=== PATIENT | female | born 1955 | race African-American/Black ===

== ENCOUNTER 2017-09-14 18:04 | Emergency (ER) | payer MEDICARE, MEDICAID ==
[~2017-09-14] VITALS: Ht 157.5 cm; Wt 119.0 kg
[~2017-09-14 18:04] MED LIST: ATORVASTATIN CA40 MG PO; BACTRIM DS1 TAB OR; BACTRIM DS1 TAB PO; BENICAR40 MG PO; CLINDAMYCIN 1% TOP; CYCLOBENZAPR10 MG PO; CYCLOBENZAPR5 MG PO; DOXYCYCL HYC100 MG PO; FLEXERIL PO; HC VALERATE EX; HYDROCHLOROT25 MG PO; HYDROCO/APAP1 T10 OR; HYDROCORT AC2.5% TOP; LORTAB 10-325 M1 TAB PO; LORTAB 5 OR; LOSARTAN POT100 MG PO; MELOXICAM7.5 MG PO; METFORMIN500 M1 PO; METRONIDAZOL500 MG PO; MICARDIS HC1 OR; NAPROSYN500 MG OR; NAPROSYN500 MG PO; OMEPRAZOLE10 MG PO; PAXIL20 MG OR; PAXIL20 MG PO; POTASSIUM CHLO10 MEQ PO; PROAIR HFA IN; TRAMADOL HCL50 MG PO; VISTARIL50 MG OR; ZPAK PO
[2017-09-14 21:34] LABS: HEMATOCRIT 35.2 % (37.0-47.0); HEMOGLOBIN 11.5 g/dl (12.0-16.0); IMMATURE GRANULOCYTES 0.4 % (0.0-1.0); MEAN CELL VOLUME 76.2 fL CALC (80.0-100.0); MEAN CORPUSCULAR HGB 24.9 pG CALC (26.0-32.0); MEAN CORPUSCULAR HGB CONC 32.7 g/L CALC (32.0-36.0); NEUT# 10.38 thou/uL (2.00-7.15); RED BLOOD COUNT 4.62 mill/uL (4.20-5.60); RED CELL DISTRI WIDTH 14.6 % (11.5-15.5)
[2017-09-14 21:55] LABS: ALBUMIN 4.4 g/dL (3.2-5.0); ALKALINE PHOSPHATASE 126 u/l (38-126); ANION GAP 15 (6-22 (CALC)); BILIRUBIN, TOTAL 0.5 mg/dL (0.0-1.4); BUN 12 mg/dL (8-23); BUN/CREATININE RATIO 22 (12-20 (CALC)); CALCIUM 9.4 mg/dL (8.4-10.2); CARBON DIOXIDE 28 mmol/l (22-30); CHLORIDE 103 mmol/l (95-108); CREATININE 0.5 mg/dL (0.5-1.0); GFR > 60 ML/MIN (>=60 (CALC)); GFR FOR AFR.AMER. > 60 ML/MIN (>=60 (CALC)); GLUCOSE 115 mg/dL (82-115); POTASSIUM 4.2 mmol/l (3.5-5.1); SGOT/AST 23 u/l (9-36); SGPT/ALT 42 u/l (11-66); SODIUM 142 mmol/l (137-146); TOTAL PROTEIN 7.9 g/dL (6.3-8.2)
[2017-09-14 22:01] LABS: URINE BILIRUBIN - DIPSTICK NEGATIVE (NEGATIVE); URINE BLOOD DIPSTICK NEGATIVE (NEGATIVE); URINE CLARITY CLEAR; URINE COLOR YELLOW; URINE GLUCOSE - DIPSTICK NEGATIVE (NEGATIVE); URINE KETONE NEGATIVE (NEGATIVE); URINE LEUK ESTERASE NEGATIVE (NEGATIVE); URINE NITRITE - DIPSTICK NEGATIVE (Negative); URINE PH 5.5 (4.5-8.0); URINE PROTEIN - DIPSTICK NEGATIVE (NEG-TRACE); URINE UROBILINOGEN - DIPSTICK 0.2 E.U./dL (0.2)
[2017-09-14] MEDS ORDERED: ZOFRAN ODT4 MG PO (22:19)
[2017-09-14] MEDS ORDERED: BENTYL20 MG PO (22:19)
[2017-09-14 23:30] VITALS: BP 145/70
== END 2017-09-14 23:35 | disposition home or self-care (01) ==
LOC: ED 18:04
PROVIDERS: Emergency Medicine
DX: K52.9 Noninfective gastroenteritis and colitis, unspecified (principal); I10 Essential (primary) hypertension; E11.9 Type 2 diabetes mellitus without complications; J44.9 Chronic obstructive pulmonary disease, unspecified; E66.01 Morbid (severe) obesity due to excess calories; G89.29 Other chronic pain; M54.9 Dorsalgia, unspecified

== ENCOUNTER → 2019-01-15 | Outpatient (REF) | payer MEDICARE, MEDICAID ==
[~2019-01-15] MED LIST changes: +BACLOFEN20 MG PO; +BENTYL20 MG PO; +COLACE100 MG PO; +FUROSEMIDE20 MG PO; +MELOXICAM15 MG PO; +ZOFRAN ODT4 MG PO
[2019-01-15 10:46] VITALS: BP 195/91
== END | disposition home or self-care (01) ==
LOC: BADA 10:30
PROVIDERS: ATTEND Surgery
DX: R19.5 Other fecal abnormalities (principal)

== ENCOUNTER → 2019-01-26 | Outpatient (REF) | payer MEDICARE, MEDICAID ==
[~2019-01-26] VITALS: Ht 157.5 cm; Wt 114.8 kg
[2019-01-26 11:39] VITALS: BP 182/98
== END | disposition home or self-care (01) ==
LOC: PO 09:10 → ORM 10:00
PROVIDERS: ATTEND Surgery
DX: Z01.818 Encounter for other preprocedural examination (principal); R19.5 Other fecal abnormalities; M19.90 Unspecified osteoarthritis, unspecified site; I10 Essential (primary) hypertension; E11.9 Type 2 diabetes mellitus without complications; E78.00 Pure hypercholesterolemia, unspecified; R06.02 Shortness of breath; Z96.643 Presence of artificial hip joint, bilateral; Z96.652 Presence of left artificial knee joint; Z98.890 Other specified postprocedural states; Z97.2 Presence of dental prosthetic device (complete) (partial); R14.0 Abdominal distension (gaseous)

== ENCOUNTER 2019-03-25 18:33 | Emergency (ER) | payer MEDICARE, MEDICAID ==
[~2019-03-25] VITALS: Ht 157.5 cm; Wt 119.1 kg
[2019-03-25] MEDS ORDERED: LISINOPRIL20 MG PO (18:55)
[2019-03-25 21:10] VITALS: BP 178/75
== END 2019-03-25 21:10 | disposition home or self-care (01) ==
LOC: ED 18:33
DX: S80.01XA Contusion of right knee, initial encounter (principal); S90.01XA Contusion of right ankle, initial encounter; S40.011A Contusion of right shoulder, initial encounter; S70.01XA Contusion of right hip, initial encounter; I10 Essential (primary) hypertension; E11.9 Type 2 diabetes mellitus without complications; W07.XXXA Fall from chair, initial encounter; Y92.009 Unspecified place in unspecified non-institutional (private) residence as the place of occurrence of the external cause

== ENCOUNTER 2019-06-11 08:22 | Inpatient (IN) | payer MEDICARE, MEDICAID ==
[~2019-06-11] VITALS: Ht 157.5 cm; Wt 116.1 kg
[~2019-06-11 08:22] MED LIST changes: +CYCLOBENZAPRINE5 MG PO; +HYDROCODONE/ACE1 TAB PO; +KLOR-CON M2020 MEQ PO
[2019-06-11] MEDS ORDERED: DOXYCYC MONO50 M1 PO (09:10)
[2019-06-11] MEDS ORDERED: CYCLOBENZAPR5 MG PO (09:15)
[2019-06-18] VITALS (8 sets, daily range): BP systolic 127–160; BP diastolic 53–75
[2019-06-18] MEDS ORDERED: POT CHLORIDE20 ME2 PO (08:26)
[2019-06-18] MEDS ORDERED: PROAIR HFA108 MCG/AC IN (08:27)
[2019-06-18 09:10] LABS: HEMATOCRIT 32.2 % (37.0-47.0); HEMOGLOBIN 10.3 g/dl (12.0-16.0); IMMATURE GRANULOCYTES 0.3 % (0.0-5.0); MEAN CELL VOLUME 76.8 fL CALC (80.0-100.0); MEAN CORPUSCULAR HGB 24.6 pG CALC (26.0-32.0); NEUT# 5.35 thou/uL (2.00-7.15); RED BLOOD COUNT 4.19 mill/uL (4.20-5.60); RED CELL DISTRI WIDTH 15.7 % (11.5-15.5)
[2019-06-18 09:46] LABS: ALBUMIN 4.2 g/dL (3.2-5.0); ALKALINE PHOSPHATASE 122 u/l (38-126); ANION GAP 14 (6-22 (CALC)); BUN 11 mg/dL (8-23); BUN/CREATININE RATIO 21 (12-20 (CALC)); CARBON DIOXIDE 28 mmol/l (22-30); CHLORIDE 104 mmol/l (95-108); CREATININE 0.5 mg/dL (0.5-1.0); GFR > 60 ML/MIN (>=60 (CALC)); GFR FOR AFR.AMER. > 60 ML/MIN (>=60 (CALC)); POTASSIUM 5.1 mmol/l (3.5-5.1); SGOT/AST 29 u/l (9-36); SODIUM 140 mmol/l (137-146); TOTAL PROTEIN 7.3 g/dL (6.3-8.2)
[2019-06-18 09:49] LABS: BILIRUBIN, TOTAL 0.4 mg/dL (0.0-1.4)
[2019-06-19 00:59] VITALS: BP 138/72
[2019-06-19 03:54] VITALS: BP 135/57
[2019-06-19 05:25] LABS: HEMATOCRIT 31.4 % (37.0-47.0); HEMOGLOBIN 9.8 g/dl (12.0-16.0)
[2019-06-19 08:00] VITALS: BP 140/50
[2019-06-19 11:11] VITALS: BP 148/64
[2019-06-19 15:22] VITALS: BP 139/76
[2019-06-19 19:19] VITALS: BP 133/78
[2019-06-20 04:10] VITALS: BP 122/56
[2019-06-20 07:38] VITALS: BP 138/63
[2019-06-20 11:32] VITALS: BP 151/56
[2019-06-20 16:00] VITALS: BP 148/56
[2019-06-20 20:30] VITALS: BP 114/60
[2019-06-21 00:38] VITALS: BP 125/59
[2019-06-21 05:20] VITALS: BP 135/70
[2019-06-21 07:18] VITALS: BP 139/71
[2019-06-21 11:06] VITALS: BP 116/62
[2019-06-21] MEDS ORDERED: HYDROCODONE/ACE1 TAB PO (11:09)
== END 2019-06-21 15:05 | DRG 483 ==
LOC: MS2 06-18 07:49
PROVIDERS: ADMIT Orthopaedic Surgery; ATTEND Internal Medicine
PROC: 0RRJ00Z Replacement of Right Shoulder Joint with Reverse Ball and Socket Synthetic Substitute, Open Approach (ICD-10-PCS; principal; 2019-06-18)
PROC: 0LS30ZZ Reposition Right Upper Arm Tendon, Open Approach (ICD-10-PCS; 2019-06-18)
PROC: 3E0T3BZ Introduction of Anesthetic Agent into Peripheral Nerves and Plexi, Percutaneous Approach (ICD-10-PCS; 2019-06-18)
DX: M19.011 Primary osteoarthritis, right shoulder (principal); S46.211A Strain of muscle, fascia and tendon of other parts of biceps, right arm, initial encounter; M75.101 Unspecified rotator cuff tear or rupture of right shoulder, not specified as traumatic; E11.9 Type 2 diabetes mellitus without complications; I10 Essential (primary) hypertension; E78.5 Hyperlipidemia, unspecified; X58.XXXA Exposure to other specified factors, initial encounter; Z79.84 Long term (current) use of oral hypoglycemic drugs; Z87.891 Personal history of nicotine dependence
CPT/HCPCS: J0131

== ENCOUNTER 2019-09-19 09:58 | Inpatient (IN) | payer MEDICARE, MEDICAID ==
[~2019-09-19] VITALS: Ht 157.5 cm; Wt 110.0 kg
[~2019-09-19 09:58] MED LIST changes: +DOXYCYC MONO50 M1 PO; +POTASSIUM CHLO20 ME2 PO; +PROAIR HFA108 MCG/AC IN
[2019-09-19] MEDS ORDERED: TRAMADOL HCL50 MG PO (10:21)
[2019-09-19] MEDS ORDERED: PERCOCET1 TA4 PO (10:22)
[2019-09-24] VITALS (7 sets, daily range): BP systolic 136–169; BP diastolic 61–72
[2019-09-24 10:00] LABS: HEMATOCRIT 32.4 % (37.0-47.0); HEMOGLOBIN 10.3 g/dl (12.0-16.0); IMMATURE GRANULOCYTES 0.2 % (0.0-5.0); MEAN CELL VOLUME 76.2 fL CALC (80.0-100.0); MEAN CORPUSCULAR HGB 24.2 pG CALC (26.0-32.0); MEAN CORPUSCULAR HGB CONC 31.8 g/L CALC (32.0-36.0); NEUT# 5.33 thou/uL (2.00-7.15); RED BLOOD COUNT 4.25 mill/uL (4.20-5.60); RED CELL DISTRI WIDTH 14.6 % (11.5-15.5)
[2019-09-24 10:18] LABS: ACT PARTIAL THROMBO TIME 27.1 SECONDS (20.0-32.5)
[2019-09-24 10:21] LABS: ALBUMIN 4.3 g/dL (3.2-5.0); ALKALINE PHOSPHATASE 131 u/l (38-126); ANION GAP 12 (6-22 (CALC)); BUN 10 mg/dL (8-23); BUN/CREATININE RATIO 17 (12-20 (CALC)); CARBON DIOXIDE 28 mmol/l (22-30); CHLORIDE 105 mmol/l (95-108); CREATININE 0.6 mg/dL (0.5-1.0); GFR > 60 ML/MIN (>=60 (CALC)); GFR FOR AFR.AMER. > 60 ML/MIN (>=60 (CALC)); POTASSIUM 4.2 mmol/l (3.5-5.1); SGOT/AST 20 u/l (9-36); SODIUM 141 mmol/l (137-146); TOTAL PROTEIN 7.8 g/dL (6.3-8.2)
[2019-09-24 10:35] LABS: BILIRUBIN, TOTAL 0.2 mg/dL (0.0-1.4)
[2019-09-25 00:22] VITALS: BP 136/64
[2019-09-25 04:45] VITALS: BP 133/71
[2019-09-25 04:59] LABS: HEMATOCRIT 27.3 % (37.0-47.0); HEMOGLOBIN 8.5 g/dl (12.0-16.0)
[2019-09-25 07:55] VITALS: BP 138/63
[2019-09-25 10:58] VITALS: BP 148/60
[2019-09-25 14:55] VITALS: BP 141/69
[2019-09-25 19:33] VITALS: BP 114/61
[2019-09-26] VITALS (7 sets, daily range): BP systolic 122–150; BP diastolic 49–70
[2019-09-26 04:52] LABS: HEMATOCRIT 26.5 % (37.0-47.0); HEMOGLOBIN 8.3 g/dl (12.0-16.0); IMMATURE GRANULOCYTES 0.4 % (0.0-5.0); MEAN CELL VOLUME 77.3 fL CALC (80.0-100.0); MEAN CORPUSCULAR HGB 24.2 pG CALC (26.0-32.0); MEAN CORPUSCULAR HGB CONC 31.3 g/L CALC (32.0-36.0); NEUT# 6.22 thou/uL (2.00-7.15); RED BLOOD COUNT 3.43 mill/uL (4.20-5.60); RED CELL DISTRI WIDTH 14.7 % (11.5-15.5)
[2019-09-26 05:13] LABS: ANION GAP 9 (6-22 (CALC)); BUN 6 mg/dL (8-23); BUN/CREATININE RATIO 10 (12-20 (CALC)); CARBON DIOXIDE 28 mmol/l (22-30); CHLORIDE 104 mmol/l (95-108); CREATININE 0.5 mg/dL (0.5-1.0); GFR > 60 ML/MIN (>=60 (CALC)); GFR FOR AFR.AMER. > 60 ML/MIN (>=60 (CALC)); MAGNESIUM 1.7 mg/dL (1.6-2.3); POTASSIUM 4.5 mmol/l (3.5-5.1); SODIUM 137 mmol/l (137-146)
[2019-09-27 04:05] VITALS: BP 150/70
[2019-09-27 04:49] LABS: HEMATOCRIT 25.7 % (37.0-47.0)
[2019-09-27 07:44] VITALS: BP 165/50
[2019-09-27 09:00] VITALS: BP 139/51
[2019-09-27 11:15] VITALS: BP 143/69
== END 2019-09-27 15:33 | DRG 483 ==
LOC: MS2 09-24 08:23 → OR 09-24 11:30 → MS2 09-27 15:33
PROVIDERS: Nurse Practitioner Family; ADMIT Internal Medicine; ATTEND Orthopaedic Surgery
PROC: 0RRK00Z Replacement of Left Shoulder Joint with Reverse Ball and Socket Synthetic Substitute, Open Approach (ICD-10-PCS; principal; 2019-09-24)
PROC: 0LS40ZZ Reposition Left Upper Arm Tendon, Open Approach (ICD-10-PCS; 2019-09-24)
PROC: 3E0T3BZ Introduction of Anesthetic Agent into Peripheral Nerves and Plexi, Percutaneous Approach (ICD-10-PCS; 2019-09-24)
DX: M19.012 Primary osteoarthritis, left shoulder (principal); S46.212A Strain of muscle, fascia and tendon of other parts of biceps, left arm, initial encounter; M75.112 Incomplete rotator cuff tear or rupture of left shoulder, not specified as traumatic; E11.9 Type 2 diabetes mellitus without complications; I10 Essential (primary) hypertension; E78.5 Hyperlipidemia, unspecified; F41.9 Anxiety disorder, unspecified; R11.2 Nausea with vomiting, unspecified; X58.XXXA Exposure to other specified factors, initial encounter; Z79.84 Long term (current) use of oral hypoglycemic drugs; Z87.891 Personal history of nicotine dependence
CPT/HCPCS: C9290; J0131; J1756; J2710

== ENCOUNTER 2020-09-22 08:56 | Emergency (ER) | payer MEDICARE, MEDICAID ==
[~2020-09-22] VITALS: Ht 157.5 cm; Wt 125.0 kg
[~2020-09-22 08:56] MED LIST changes: +PERCOCET1 TA4 PO
[2020-09-22] MEDS ORDERED: BACTRIM DS1 TAB PO (10:44)
[2020-09-22 11:09] VITALS: BP 151/67
== END 2020-09-22 11:25 | disposition home or self-care (01) ==
LOC: ED 08:56
DX: M25.512 Pain in left shoulder (principal); R07.81 Pleurodynia; L02.416 Cutaneous abscess of left lower limb; E11.9 Type 2 diabetes mellitus without complications; I10 Essential (primary) hypertension; E66.9 Obesity, unspecified; W19.XXXA Unspecified fall, initial encounter; Y92.009 Unspecified place in unspecified non-institutional (private) residence as the place of occurrence of the external cause; Z79.84 Long term (current) use of oral hypoglycemic drugs; Z96.612 Presence of left artificial shoulder joint

== ENCOUNTER 2022-07-22 16:38 | Emergency (ER) | payer MEDICARE, MEDICAID ==
[2022-07-22] VITALS (11 sets, daily range): BP systolic 132–172; BP diastolic 55–80
[~2022-07-22] VITALS: Ht 157.5 cm; Wt 109.1 kg
[2022-07-22 18:12] LABS: HEMATOCRIT 31.4 % (37.0-47.0); IMMATURE GRANULOCYTES 0.1 % (0.0-5.0); MEAN CELL VOLUME 74.2 fL CALC (80.0-100.0); MEAN CORPUSCULAR HGB 23.6 pG CALC (26.0-32.0); MEAN CORPUSCULAR HGB CONC 31.8 g/dL CAL (32.0-36.0); NEUT# 6.46 thou/uL (2.00-7.15); RED BLOOD COUNT 4.23 mill/uL (4.20-5.60); RED CELL DISTRI WIDTH 14.9 % (11.5-15.5)
[2022-07-22 18:39] LABS: ALBUMIN 4.3 g/dL (3.2-5.0); ALKALINE PHOSPHATASE 139 u/l (38-126); ANION GAP 14 (6-22 (CALC)); BILIRUBIN, TOTAL 0.2 mg/dL (0.0-1.4); BUN 12 mg/dL (8-23); BUN/CREATININE RATIO 21 (12-20 (CALC)); CARBON DIOXIDE 24 mmol/l (22-30); CHLORIDE 106 mmol/l (95-108); CREATININE 0.5 mg/dL (0.5-1.0); GFR FOR AFR.AMER. > 60 ML/MIN (>=60 (CALC)); GFR OTHER RACES > 60 ML/MIN (>=60 (CALC)); POTASSIUM 4.5 mmol/l (3.5-5.1); SGOT/AST 23 u/l (9-36); SODIUM 140 mmol/l (137-146); TOTAL PROTEIN 8.6 g/dL (6.3-8.2)
[2022-07-22] MEDS ORDERED: TAM75CAP PO (19:35)
[2022-07-22] MEDS ORDERED: MEDDOSEPAK PO (19:35)
== END 2022-07-22 20:14 | disposition home or self-care (01) ==
LOC: ED 16:38
PROVIDERS: Nurse Practitioner
DX: J10.1 Influenza due to other identified influenza virus with other respiratory manifestations (principal); E11.9 Type 2 diabetes mellitus without complications; I10 Essential (primary) hypertension; Z79.84 Long term (current) use of oral hypoglycemic drugs; Z20.822 Contact with and (suspected) exposure to COVID-19

== ENCOUNTER 2023-07-26 06:33 | Day surgery (SDC) | payer MEDICARE, MEDICAID ==
[~2023-07-26] VITALS: Ht 157.5 cm; Wt 104.8 kg
[~2023-07-26 06:33] MED LIST changes: +AMLODIPINE BESY10 MG PO; +MEDDOSEPAK PO; +OXYCODO-APAP1 TA2 PO; +PROTONIX40 M2 PO; +RYBELSUS14 MG; +TAM75CAP PO; +[UNRECOGNIZED DRUG - OTHER]
[2023-07-26 13:09] VITALS: BP 160/76
== END 2023-07-26 13:00 | disposition home or self-care (01) ==
LOC: ENDO 06:33 → ORM 08:00 → ENDO 13:00
PROVIDERS: ATTEND Surgery
PROC: 0DJ08ZZ Inspection of Upper Intestinal Tract, Via Natural or Artificial Opening Endoscopic (ICD-10-PCS; principal; 2023-07-26)
PROC: 05HY33Z Insertion of Infusion Device into Upper Vein, Percutaneous Approach (ICD-10-PCS; 2023-07-26)
PROC: 05HN33Z Insertion of Infusion Device into Left Internal Jugular Vein, Percutaneous Approach (ICD-10-PCS; 2023-07-26)
PROC: B544ZZA Ultrasonography of Left Jugular Veins, Guidance (ICD-10-PCS; 2023-07-26)
PROC: 0JH63WZ Insertion of Totally Implantable Vascular Access Device into Chest Subcutaneous Tissue and Fascia, Percutaneous Approach (ICD-10-PCS; 2023-07-26)
PROC: 02HV33Z Insertion of Infusion Device into Superior Vena Cava, Percutaneous Approach (ICD-10-PCS; 2023-07-26)
PROC: B518ZZA Fluoroscopy of Superior Vena Cava, Guidance (ICD-10-PCS; 2023-07-26)
DX: K44.9 Diaphragmatic hernia without obstruction or gangrene (principal); Z45.2 Encounter for adjustment and management of vascular access device; I87.8 Other specified disorders of veins; E11.9 Type 2 diabetes mellitus without complications; I10 Essential (primary) hypertension; Z79.899 Other long term (current) drug therapy; Z79.84 Long term (current) use of oral hypoglycemic drugs
CPT/HCPCS: J0131; J0690

== ENCOUNTER 2023-09-01 06:31 | Day surgery (SDC) | payer MEDICARE, MEDICAID ==
[2023-09-01] MEDS ORDERED: OXYCODO-APAP1 TA2 PO (09:58)
[2023-09-01 11:58] VITALS: BP 160/80
== END 2023-09-01 12:30 | disposition home or self-care (01) ==
LOC: ORM 06:31
PROVIDERS: ATTEND Surgery
PROC: 0JPT3XZ Removal of Tunneled Vascular Access Device from Trunk Subcutaneous Tissue and Fascia, Percutaneous Approach (ICD-10-PCS; principal; 2023-09-01)
PROC: 0JH63XZ Insertion of Tunneled Vascular Access Device into Chest Subcutaneous Tissue and Fascia, Percutaneous Approach (ICD-10-PCS; 2023-09-01)
PROC: 02PY33Z Removal of Infusion Device from Great Vessel, Percutaneous Approach (ICD-10-PCS; 2023-09-01)
PROC: 02HV33Z Insertion of Infusion Device into Superior Vena Cava, Percutaneous Approach (ICD-10-PCS; 2023-09-01)
PROC: B518ZZA Fluoroscopy of Superior Vena Cava, Guidance (ICD-10-PCS; 2023-09-01)
DX: T82.524A Displacement of infusion catheter, initial encounter (principal); I10 Essential (primary) hypertension; E11.9 Type 2 diabetes mellitus without complications; E78.5 Hyperlipidemia, unspecified; Y83.8 Other surgical procedures as the cause of abnormal reaction of the patient, or of later complication, without mention of misadventure at the time of the procedure; Z87.891 Personal history of nicotine dependence; Z79.84 Long term (current) use of oral hypoglycemic drugs
CPT/HCPCS: J0690

== ENCOUNTER 2024-08-07 12:37 | Emergency (ER) | payer MEDICARE, MEDICAID ==
[~2024-08-07] VITALS: Ht 157.5 cm; Wt 110.9 kg
[2024-08-07] VITALS (8 sets, daily range): BP systolic 126–183; BP diastolic 61–79
[2024-08-07 14:55] LABS: BASO% 0.2 % (0-3); EOS% 0.8 % (0-8); HEMATOCRIT 32.2 % (37.0-47.0); HEMOGLOBIN 10.5 g/dl (12.0-16.0); IMMATURE GRANULOCYTES 0.4 % (0.0-5.0); LYMPH% 13.3 % (15-41); MEAN CORPUSCULAR HGB 27.1 pG CALC (26.0-32.0); MEAN CORPUSCULAR HGB CONC 32.6 g/dL CAL (32.0-36.0); MONO% 8.2 % (2-13); NEUT# 8.22 thou/uL (2.00-7.15); NEUT% 77.1 % (42-76); RED BLOOD COUNT 3.88 mill/uL (4.20-5.60)
[2024-08-07 15:16] LABS: ALBUMIN 4.1 g/dL (3.2-5.0); ALKALINE PHOSPHATASE 145 u/l (38-126); ANION GAP 8 (6-22 (CALC)); BILIRUBIN, TOTAL 0.4 mg/dL (0.02-1.3); BUN 22 mg/dL (8-23); BUN/CREATININE RATIO 32 (12-20 (CALC)); CARBON DIOXIDE 23 mmol/l (22-30); CHLORIDE 108 mmol/l (95-108); CREATININE 0.7 mg/dL (0.5-1.0); ESTIMATED GFR 93 ML/MIN (>=90 (CALC)); POTASSIUM 4.2 mmol/l (3.5-5.1); SGOT/AST 44 u/l (9-36); SODIUM 136 mmol/l (137-146); TOTAL PROTEIN 7.8 g/dL (6.3-8.2)
== END 2024-08-07 16:22 | disposition home or self-care (01) ==
LOC: ED 12:37
PROVIDERS: Family Medicine
DX: M54.2 Cervicalgia (principal); I10 Essential (primary) hypertension; E11.9 Type 2 diabetes mellitus without complications; M54.50 Low back pain, unspecified; G89.29 Other chronic pain; Z20.822 Contact with and (suspected) exposure to COVID-19; Z79.84 Long term (current) use of oral hypoglycemic drugs

== ENCOUNTER 2025-01-22 08:27 | Day surgery (SDC) | payer MEDICARE, MEDICAID ==
[2025-01-22] VITALS (16 sets, daily range): BP systolic 153–206; BP diastolic 70–102
[~2025-01-22] VITALS: Ht 157.5 cm; Wt 109.0 kg
[2025-01-22] MEDS ORDERED: ASPIRIN 81 MG/TAB PO ONE (08:35)
[2025-01-22] MEDS ORDERED: GLUCAGON HCL (Rdna) 1 MG VIAL IV ONE (08:45)
[2025-01-22 09:21] LABS: BASO% 0.2 % (0-3); EOS% 1.9 % (0-8); HEMATOCRIT 34.2 % (37.0-47.0); HEMOGLOBIN 10.9 g/dl (12.0-16.0); IMMATURE GRANULOCYTES 0.1 % (0.0-5.0); LYMPH% 17.3 % (15-41); MEAN CELL VOLUME 80.7 fL CALC (80.0-100.0); MEAN CORPUSCULAR HGB 25.7 pG CALC (26.0-32.0); MEAN CORPUSCULAR HGB CONC 31.9 g/dL CAL (32.0-36.0); MONO% 7.4 % (2-13); NEUT# 6.09 thou/uL (2.00-7.15); NEUT% 73.1 % (42-76); RED BLOOD COUNT 4.24 mill/uL (4.20-5.60); RED CELL DISTRI WIDTH 14.6 % (11.5-15.5)
[2025-01-22 09:35] LABS: ALBUMIN 4.1 g/dL (3.2-5.0); ALKALINE PHOSPHATASE 117 u/l (38-126); BILIRUBIN, TOTAL 0.4 mg/dL (0.02-1.3); BUN 7 mg/dL (8-23); BUN/CREATININE RATIO 14 (12-20 (CALC)); CARBON DIOXIDE 29 mmol/l (22-30); CHLORIDE 108 mmol/l (95-108); CREATININE 0.5 mg/dL (0.5-1.0); ESTIMATED GFR 101 ML/MIN (>=90 (CALC)); SGOT/AST 33 u/l (9-36); TOTAL PROTEIN 8.1 g/dL (6.3-8.2)
[2025-01-22 09:39] LABS: ANION GAP 11 (6-22 (CALC)); POTASSIUM 3.1 mmol/l (3.5-5.1); SODIUM 145 mmol/l (137-146)
[2025-01-22] MEDS ORDERED: SODIUM CHLORIDE 0.9% 1,000 ML IV ONE (11:36)
[2025-01-22] MEDS ORDERED: FAMOTIDINE 10MG/ML 2ML SDV IV ONE (11:52)
[2025-01-22] MEDS ORDERED: SODIUM CHLORIDE 0.9% 10 ML SYR ONE (14:00)
[2025-01-22] MEDS ORDERED: SUGAMMADEX SODIUM 200 MG/2 ML SDV IV ONE (14:14)
[2025-01-22] MEDS ORDERED: LIDOCAINE HCL 2% 2ML SDV IV ONE (14:14)
[2025-01-22] MEDS ORDERED: METOPROLOL TARTRATE 5 MG/5 ML VIAL IV ONE (14:14)
[2025-01-22] MEDS ORDERED: ROCURONIUM BROMIDE 10 MG/ML 5 ML VIAL IV ONE (14:14)
[2025-01-22] MEDS ORDERED: SUCCINYLCHOLINE CHLORIDE 20 MG/ML 10ML VIAL IV ONE (14:14)
[2025-01-22] MEDS ORDERED: PROPOFOL 200 MG/20 ML VIAL IV ONE (14:14)
[2025-01-22] MEDS ORDERED: HEPARIN SODIUM FLUSH (PORCINE) 100 UNITS/ML 3 ML SYR IV SCH (14:30)
== END 2025-01-22 14:35 | disposition home or self-care (01) ==
LOC: ED 08:27 → ORM 11:15
PROVIDERS: Family Medicine; ATTEND Surgery
PROC: 0DC38ZZ Extirpation of Matter from Lower Esophagus, Via Natural or Artificial Opening Endoscopic (ICD-10-PCS; principal; 2025-01-22)
PROC: 0DB48ZX Excision of Esophagogastric Junction, Via Natural or Artificial Opening Endoscopic, Diagnostic (ICD-10-PCS; 2025-01-22)
DX: T18.128A Food in esophagus causing other injury, initial encounter (principal); K22.10 Ulcer of esophagus without bleeding; K44.9 Diaphragmatic hernia without obstruction or gangrene; I10 Essential (primary) hypertension; E11.9 Type 2 diabetes mellitus without complications; E78.5 Hyperlipidemia, unspecified; W44.F3XA Food entering into or through a natural orifice, initial encounter; Z87.891 Personal history of nicotine dependence; Z79.84 Long term (current) use of oral hypoglycemic drugs; R07.9 Chest pain, unspecified
CPT/HCPCS: J1610